=== PATIENT | male | born 1940 | race Caucasian/White ===

== ENCOUNTER 2016-03-30 13:13 | Emergency (ER) | payer MEDICARE, OTHER ==
[2016-03-30] MEDS ORDERED: MORPHINE SULFATE 2 MG/ML DISP.SYRIN IM ONE (13:43)
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
[2016-03-30] MEDS ORDERED: MORPHINE SULFATE 2 MG/ML DISP.SYRIN ONE (14:11)
[2016-03-30 14:26] VITALS: BP 159/79
[2016-03-30] MEDS ORDERED: ERYTHROMYCIN BASE 3.5 APPL TUBE RIGHTEYE ONE (15:08)
[2016-03-30] MEDS ORDERED: ERYTHROMYCIN BASE 3.5 APPL TUBE ONE (15:17)
== END 2016-03-30 15:55 | disposition home or self-care (01) ==
LOC: ER 13:13
PROC: 08QQXZZ Repair Right Lower Eyelid, External Approach (ICD-10-PCS; principal; 2016-03-30)
PROC: 08QNXZZ Repair Right Upper Eyelid, External Approach (ICD-10-PCS; 2016-03-30)
DX: S01.111A Laceration without foreign body of right eyelid and periocular area, initial encounter (principal); S09.90XA Unspecified injury of head, initial encounter; S16.1XXA Strain of muscle, fascia and tendon at neck level, initial encounter; W11.XXXA Fall on and from ladder, initial encounter; Y93.H3 Activity, building and construction; Y92.22 Religious institution as the place of occurrence of the external cause